=== PATIENT | male | born 2000 | race Caucasian/White ===

== ENCOUNTER 2023-08-30 10:27 | Outpatient (CLI) | payer OTHER, SELFPAY | END 2023-08-30 10:28 | disposition home or self-care (01) | LOC: NFLDREF 09-04 12:44 | PROVIDERS: PCP Physician Assistant Medical; Referring Provider Physician Assistant Medical; Visit Provider Physician Assistant Medical | DX: Z13.220 Encounter for screening for lipoid disorders (principal); Z13.1 Encounter for screening for diabetes mellitus; Z11.3 Encounter for screening for infections with a predominantly sexual mode of transmission | CPT/HCPCS: 80061; 82947; 86592; 86703; 86706; 86803; 87340 ==